=== PATIENT | male | born 1940 | race Caucasian/White ===

== ENCOUNTER 2017-08-04 18:31 | Emergency (ER) | payer OTHER, MEDICARE ==
[~2017-08-04 18:31] MED LIST: ACET-1311 PO; ALFU10TA2 PO; AVD5 PO; IBUP-1050 PO; METR1GEL3; MULT-506 PO; NITR-5 PO; OMEG10007 PO; PSEU30TA20 PO
[2017-08-04] MEDS ORDERED: SODIUM CHLORIDE 0.9% 10ML FLUSH IV ONE (18:33)
[2017-08-04 18:39] VITALS: PULSE 0
--- NOTE | 2017-08-04 19:01 | EMERGENCY ROOM VISIT NOTE ---
History Report prepared by Marcos: Juarez Lerma Under the Supervision of: Dr. Dimitry Loza M.D. First contact with patient: 18:30 Chief Complaint: CARDIAC ARREST Stated Complaint: CARDIAC ARREST History of Present Illness The patient is a 77 year old male who presents to the Emergency Room with complaints of a sudden cardiac arrest occurring 30-40 minutes prior to arrival. Per the EMS, the patient went to someone's house, and as he was getting out of his car he clutched his side, and then fell to the ground unresponsive. The person that he was visiting then started to do CPR, and when the salesperson trailers and motor homes arrived 5 minutes later they gave the patient one shock from the AED. The patient has a history of HTN. History is limited secondary to cardiac arrest. Source of History: EMS History Limited By: cardiac arrest Onset: 30-40 minutes prior to arrival Position: other (global) Quality: other (caridac arrest) Timing: constant Review of Systems History is limited secondary to cardiac arrest. Past Medical & Surgical Medical Problems: (1) HTN (hypertension) History limited secondary to cardiac arrest. Family History History limited secondary to cardiac arrest. Social History Occupation Status: retired History limited secondary to cardiac arrest. Current/Historical Medications Scheduled Alfuzosin Hcl (Uroxatral), 10 MG PO DAILY Dutasteride (Avodart *), 0.5 MG PO DAILY Fish Oil ([place]-3), 3 CAP PO DAILY Ibuprofen (Advil), 200-600 MG PO Q4-6HR PRN Metronidazole Hcl (Metrogel), DAILY Multivitamin (Multivitamin), 1 TAB PO DAILY Nitrofurantoin Monohyd Macrocr (Macrobid), 100 MG PO BID Pseudoephedrine (Sudafed), 30 MG PO PRN Miscellaneous Medications Acetaminophen (Tylenol), 650 MG PO Allergies Coded Allergies: Simvastatin (Verified Adverse Reaction, Severe, 08/18/12) MYALGIAS No Known Allergies (Verified , 04/25/08) Physical Exam Vital Signs Date Time Temp Pulse Resp B/P (MAP) Pulse Ox O2 Delivery O2 Flow Rate FiO2 08/04/17 18:45 Ambu-Bag 08/04/17 18:39 0 08/04/17 18:36 0 08/04/17 18:36 0 Physical Exam GENERAL: Cyanotic lips and extremities HENT: Normocephalic, atraumatic. EYES: Fixed and dilated pupils. No corneal reflex. Absent oculocephalic reflex. NECK: Supple. No nuchal rigidity. FROM. No JVD. RESPIRATORY: Bilateral breath sounds with manual bagging. CARDIAC: Pulseless. Bedside ultrasound with no cardiac activity. No pericardial effusion. RECTAL: Deferred. LOWER EXTREMITIES: Calves are equal size bilaterally and non-tender. No edema. NEURO: No corneal reflex. Absent oculocephalic reflex. GCS 3 SKIN: Cyanotic lips and extremities Medical Decision & Procedures ED Course 1829: The patient was evaluated in room B1. A complete history and physical exam was performed. 1836: The patient's time of was announced. 1900: I talked to the patient's family, and I updated them. Medical Decision I reviewed the patient's past medical history, medications, and the nursing notes as described above. Differential diagnosis: Etiologies such as cardiac ischemia, aortic dissection, pulmonary embolism, electrolyte abnormality, acidosis, tension pneumothorax, hypothermia, hypovolemia, intracranial event, as well as others were entertained. The patient is a 77 y/o gentleman with pmhx of HTN who presents to the emergency department after episode of syncope with subsequent arrest with bystander CPR per HPI. Per EMS report patient had AED placed by police on arrival and received shock but subsequently was found to be in Asystole for ~40 minutes [employer] despite intubation and continued CPR with multiple rounds of epinephrine. Med command call received from field and given prolonged asystole termination of tx reasonable however given EMS en route treatment continued until arrival and evaluated. Upon evaluation int the ED patient was found to appear cyanotic, with cool extremities. Fixed pupils with absent corneal and ocular cephalic reflex. B/l BS present with manual bagging. Initial pulse check still with Asystole, pulseless and no cardiac activity on bedside US. No pericardial effusion. CPR continued for additional cycle with epinephrine however patient still in Asystole. Thus, given unlikely to achieve ROSC or meaningful recovery given prolonged asystolic arrest, patient was pronounced at 1836 with spontaneous breath sounds absent, pulseless, and absent neurologic function. Friends of patient, including POA, updated and questions answered in family room after pronouncement. CM assisting. Impression Primary Impression: Cardiac arrest Critical Care I have personally spent greater than 35 minutes of critical care time in the direct management of this patient. This includes bedside care, interpretation of diagnostic studies, and testing, discussion with consultants, patient, and family members, and other required patient management activities. This 35 minutes is in excess of all separately billable procedures. Scribe Attestation The scribe's documentation has been prepared under my direction and personally reviewed by me in its entirety. I confirm that the note above accurately reflects all work, treatment, procedures, and medical decision making performed by me. Departure Information Dispostion
== END 2017-08-04 18:50 | disposition expired ==
LOC: EDBD 18:31 → C.EDB 18:32 → C.EDA 18:50
DX: I46.9 Cardiac arrest, cause unspecified (principal); I10 Essential (primary) hypertension